=== PATIENT | female | born 1980 | race Caucasian/White ===

== ENCOUNTER 2016-06-26 22:17 | Emergency (ER) | payer OTHER ==
[2016-06-26 22:27] VITALS: BP 150/93
[2016-06-26] MEDS ORDERED: ALBUTEROL SULFATE 2.5 MG/3 ML NEBU. NEB ONE (23:15)
[2016-06-27] MEDS ORDERED: DEXAMETHASONE SOD PHOS 20 MG/5 ML VIAL. IM ONE (00:15)
[2016-06-27] MEDS ORDERED: PROAIR HFA8.5 GM INH (00:27)
[2016-06-27] MEDS ORDERED: PRED20TA PO (00:27)
--- NOTE | 2016-06-27 00:27 | PHYS DOC ---
Past Medical History Past Medical History: Depression, Other Additional Past Medical Histor: chronic back pain, chronic pain, H/A's, ezcema Past Surgical History: Cholecystectomy Smoking: Quit Greater Than 1 Year Alcohol Use: None Drug Use: None Adult General Chief Complaint Chief Complaint: PLEURISY HPI HPI Patient is a 35 year old female who presents with bilateral lateral rib pain starting tonight. She is a history of the same over the last 2 years. She states that the pain became worse tonight when she was cleaning her house. She reports shortness of breath and nonproductive cough as well. She denies fever, nasal congestion, or sore throat. The pain is worsened with deep breaths and movement of the arms and thorax. Her previous symptoms have been improved with an inhaler or with a breathing treatment. She does not currently have an inhaler at home. She denies any recent surgery, travel, immobilization, control use, or personal or family history of clotting disorders. She does not have a PCP. Review of Systems Review of Systems Constitutional: Denies fever or chills. [] Eyes: Denies change in visual acuity, redness, or eye pain. [] HENT: Denies ear pain, nasal congestion or sore throat. [] Respiratory: Reports nonproductive cough and shortness of breath. Cardiovascular: Denies palpitations or edema. Reports bilateral lateral rib pain. GI: Denies abdominal pain, nausea, vomiting, bloody stools or diarrhea. [] : Denies dysuria, hematuria or urinary frequency. [] Musculoskeletal: Denies back pain or joint pain. [] Integument: Denies rash or skin lesions. [] Neurologic: Denies headache, focal weakness or sensory changes. [] Endocrine: Denies polyuria or polydipsia. [] Psych: Denies anxiety or depression. [] All systems reviewed and negative unless otherwise stated in the HPI. Current Medications Current Medications Current Medications Medications (Trade) Dose Ordered Sig/Fabian Start Time Stop Time Status Last Admin Dose Admin Albuterol Sulfate (Ventolin Neb Soln) 2.5 mg 1X ONCE 06/26/16 23:15 06/26/16 23:16 DC 06/26/16 23:33 2.5 MG Dexamethasone Sodium Phosphate (Decadron) 10 mg 1X ONCE 06/27/16 00:15 06/27/16 00:16 DC 06/27/16 00:26 10 MG Allergies Allergies Allergies Coded Allergies Type Severity Reaction Last Updated Verified Penicillins Allergy Intermediate swells up, itches 03/19/14 Yes codeine Allergy Intermediate swells up & itches 03/19/14 Yes oxycodone Allergy Intermediate hives 03/19/14 Yes Physical Exam Physical Exam Constitutional: Well developed, well nourished, no acute distress, non-toxic appearance. [] HENT: Normocephalic, atraumatic, bilateral external ears normal, oropharynx moist, no oral exudates, nose normal. [] Eyes: PERRLA, EOMI, conjunctiva normal, no discharge. [] Neck: Normal range of motion, no tenderness, supple, no stridor. [] Cardiovascular: Heart rate regular rhythm, no murmur [] Lungs & Thorax: Bilateral breath sounds clear to auscultation without wheezes, rales, or rhonchi. There is significant tenderness of the lateral chest wall bilaterally without crepitus. No respiratory distress. Abdomen: Bowel sounds normal, soft, no tenderness, no masses, no pulsatile masses. [] Skin: Warm, dry, no erythema, no rash. [] Back: No tenderness, no CVA tenderness. [] Extremities: No tenderness, no cyanosis, no clubbing, ROM intact, no edema. [] Neurologic: Alert and oriented X 3, normal motor function, normal sensory function, no focal deficits noted. [] Psychologic: Affect normal, judgement normal, mood normal. [] Current Patient Data Vital Signs Vital Signs Date Time Temp Pulse Resp B/P Pulse Ox O2 Delivery O2 Flow Rate FiO2 06/26/16 23:34 99 Room Air 06/26/16 22:27 97.9 100 18 97.9 EKG EKG [] Radiology/Procedures Radiology/Procedures [] Course & Med Decision Making Course & Med Decision Making Pertinent Labs and Imaging studies reviewed. (See chart for details) The patient received a nebulizer treatment in the emergency department. She reported improvement in her shortness of breath with mild improvement in her pain. She is given IM Decadron to help with inflammation. She is discharged with prescription for albuterol inhaler and prednisone. Return precautions were discussed. She verbalizes understanding and agrees with plan. Dragon Disclaimer Dragon Disclaimer This electronic medical record was generated, in whole or in part, using a voice recognition dictation system. Departure Departure Impression: Primary Impression: Chest wall pain Disposition: 01 HOME, SELF-CARE Condition: IMPROVED Referrals: NO PCP (PCP) Patient Instructions: Chest Wall Pain, [id number] Additional Instructions: You were given an injection of steroids in the emergency department to decrease inflammation. Please use the prescribed inhaler as needed for cough or shortness of breath. Do not use more often than directed. Please follow up with a primary care provider if your symptoms continue. Return to the emergency department if you have any new or concerning symptoms. Scripts Prednisone 20 Mg [id number] Mg PO DAILY 5 Days Prov:JUANCHO ASTORGA 06/27/16 Albuterol Sulfate (Proair Hfa Inhaler)8.5 Gm [id number] Puff INH Q4HRS PRN SHORTNESS OF BREATH #1 INHALER Prov:JUANCHO ASTORGA 06/27/16 JUANCHO ASTORGA Jun 27, 2016 00:27
== END 2016-06-27 00:43 | disposition home or self-care (01) ==
LOC: ER 22:17
DX: R07.89 Other chest pain (principal); R06.02 Shortness of breath; R05 Cough; G89.29 Other chronic pain; F32.9 Major depressive disorder, single episode, unspecified; Z87.891 Personal history of nicotine dependence; Z88.0 Allergy status to penicillin; Z88.5 Allergy status to narcotic agent
CPT/HCPCS: 94250; 94640; 96372; 99283; J1100

== ENCOUNTER 2016-08-21 20:02 | Emergency (ER) | payer OTHER ==
[~2016-08-21] VITALS: Ht 165.1 cm; Wt 122.5 kg
[~2016-08-21 20:02] MED LIST: PRED20TA PO; PROAIR HFA8.5 GM INH
[2016-08-21 20:14] VITALS: BP 170/98
[2016-08-21] MEDS ORDERED: SULF1TAB24 PO (20:30)
[2016-08-21] MEDS ORDERED: DIPHTH,PERTUSS(ACELL),TET TOX 0.5 ML DISP.SYRIN. VAX IM ONE (20:30)
--- NOTE | 2016-08-21 20:33 | PHYS DOC ---
Past Medical History Past Medical History: Depression, Other Additional Past Medical Histor: chronic back pain, chronic pain, H/A's, ezcema Past Surgical History: Cholecystectomy Alcohol Use: None Drug Use: None Adult General Chief Complaint Chief Complaint: INSECT BITE [facility] HPI Patient is a 36 year old female presents to the emergency department with a insect bite to her left lower leg that developed yesterday. She states the areas been very irritated and itching. Patient denies any drainage or discharge coming from the site. She denies any numbness or tingling into the lower extremity. Patient states that she does feel different. She denies any nausea vomiting, fever chills. She does have an area to her left lower leg that appears to be a quarter size that is red with a scabbed over area. No drainage or discharge noted from the site. Review of Systems Review of Systems Constitutional: Denies fever or chills [] Eyes: Denies change in visual acuity, redness, or eye pain [] HENT: Denies nasal congestion or sore throat [] Respiratory: Denies cough or shortness of breath [] Cardiovascular: No additional information not addressed in HPI [] GI: Denies abdominal pain, nausea, vomiting, bloody stools or diarrhea [] : Denies dysuria or hematuria [] Musculoskeletal: Denies back pain or joint pain [] Integument: Denies rash or skin lesions. C/o sore to the left lower leg Neurologic: Denies headache, focal weakness or sensory changes [] Endocrine: Denies polyuria or polydipsia [] Allergies Allergies Allergies Coded Allergies Type Severity Reaction Last Updated Verified Penicillins Allergy Intermediate swells up, itches 03/19/14 Yes codeine Allergy Intermediate swells up & itches 03/19/14 Yes oxycodone Allergy Intermediate hives 03/19/14 Yes Physical Exam Physical Exam Constitutional: Well developed, well nourished, no acute distress, non-toxic appearance. []] Cardiovascular:Heart rate regular rhythm Skin: Warm, dry, no erythema, no rash. Patient with quarter size area to the left lower leg that is red with a scab noted over the site. No drainage or discharge noted from the site. Extremities: No tenderness, no cyanosis, no clubbing, ROM intact, no edema. [] Neurologic: Alert and oriented X 3, normal motor function, normal sensory function, no focal deficits noted. [] Psychologic: Affect normal, judgement normal, mood normal. [] Current Patient Data Vital Signs Vital Signs Date Time Temp Pulse Resp B/P (MAP) Pulse Ox O2 Delivery O2 Flow Rate FiO2 08/21/16 20:14 97.9 88 20 99 Room Air 97.9 EKG EKG [] Radiology/Procedures Radiology/Procedures [] Course & Med Decision Making Course & Med Decision Making Pertinent Labs and Imaging studies reviewed. (See chart for details) Patient was instructed to keep the area clean and dry. Clean the site with soap and water and apply antibiotic ointment to the area twice a day. She'll be placed on Bactrim 1 tablet twice a for the next 10 days. Signs and symptoms to return back to emergency department as been provided. Patient agrees with discharge instructions treatment regimens and recommendations. [] Dragon Disclaimer Dragon Disclaimer This electronic medical record was generated, in whole or in part, using a voice recognition dictation system. Departure Departure Impression: Primary Impression: Insect bite Disposition: HOME, SELF-CARE Condition: STABLE Referrals: NO PCP (PCP) Patient Instructions: Insect Bite, [id number] Additional Instructions: Activity a tolerated Medication as prescribed Keep the area clean and dry. Clean the site with soap and water twice a day and apply antibiotic ointment to site Followup with your primary care provider in 3-5 days Return to emergency department as needed for signs and symptoms that become worse. Scripts Sulfamethoxazole/Trimethoprim (BACTRIM DS TABLET) 1 Each Tablet 1 TAB PO BID, #20 TAB Prov: SIENNA ZULETA APRN 08/21/16 SIENNA ZULETA APRN Aug 21, 2016 20:33
== END 2016-08-21 20:40 | disposition home or self-care (01) ==
LOC: ER 20:02
DX: S80.862A Insect bite (nonvenomous), left lower leg, initial encounter (principal); F32.9 Major depressive disorder, single episode, unspecified; G89.29 Other chronic pain; Z88.0 Allergy status to penicillin; Z88.5 Allergy status to narcotic agent; W57.XXXA Bitten or stung by nonvenomous insect and other nonvenomous arthropods, initial encounter; Y93.89 Activity, other specified; Y92.89 Other specified places as the place of occurrence of the external cause; Y99.8 Other external cause status
CPT/HCPCS: 90471; 90715; 99283-25

== ENCOUNTER 2016-12-30 19:27 | Emergency (ER) | payer OTHER ==
[~2016-12-30] VITALS: Ht 167.6 cm; Wt 113.4 kg
[~2016-12-30 19:27] MED LIST changes: +SULF1TAB24 PO
[2016-12-30 19:32] VITALS: BP 138/76
--- NOTE | 2016-12-30 20:01 | PHYS DOC ---
Past Medical History Past Medical History: Depression, Hypertension, Other Additional Past Medical Histor: chronic back pain, chronic pain, H/A's, ezcema Past Surgical History: Cholecystectomy Alcohol Use: None Drug Use: None Adult General Chief Complaint Chief Complaint: SORE THROAT HPI HPI Patient is a 36 year old female presents the ED complaining of sore throat 3 days. Pain with swallowing. Sick contacts with similar symptoms. Associated symptoms include productive cough, subjective fever, 2 episodes of vomiting, and headache. Denies chest pain, shortness of breath, dizziness, weakness, abdominal pain, difficulty swallowing, or tongue swelling. Review of Systems Review of Systems Constitutional: Complains of subjective fever. Denies chills. [] Eyes: Denies change in visual acuity, redness, or eye pain [] HENT: Denies nasal congestion. Complains of sore throat. [] Respiratory: Complains of cough. Denies shortness of breath [] Cardiovascular: No additional information not addressed in HPI [] GI: Complains of vomiting. Denies abdominal pain, bloody stools or diarrhea [] : Denies dysuria or hematuria [] Musculoskeletal: Denies back pain or joint pain [] Integument: Denies rash or skin lesions [] Neurologic: Denies headache, focal weakness or sensory changes [] Endocrine: Denies polyuria or polydipsia [] Allergies Allergies Allergies Coded Allergies Type Severity Reaction Last Updated Verified Penicillins Allergy Intermediate swells up, itches 03/19/14 Yes codeine Allergy Intermediate swells up & itches 03/19/14 Yes oxycodone Allergy Intermediate hives 03/19/14 Yes Physical Exam Physical Exam Constitutional: Well developed, well nourished, no acute distress, non-toxic appearance. [] HENT: Normocephalic, atraumatic, bilateral external ears normal, MILD PHARYNGEAL ERYTHEMA. oropharynx moist, nose normal. [] Eyes: PERRLA, EOMI, conjunctiva normal, no discharge. [] Neck: Normal range of motion, no tenderness, supple, no stridor. [] Cardiovascular:Heart rate regular rhythm, no murmur [] Lungs & Thorax: Bilateral breath sounds clear to auscultation [] Abdomen: Bowel sounds normal, soft, no tenderness, no masses, no pulsatile masses. [] Skin: Warm, dry, no erythema, no rash. [] Back: No tenderness, no CVA tenderness. [] Extremities: No tenderness, no cyanosis, no clubbing, ROM intact, no edema. [] Neurologic: Alert and oriented X 3, normal motor function, normal sensory function, no focal deficits noted. [] Psychologic: Affect normal, judgement normal, mood normal. [] Current Patient Data Vital Signs Vital Signs Date Time Temp Pulse Resp B/P (MAP) Pulse Ox O2 Delivery O2 Flow Rate FiO2 12/30/16 19:32 97.9 99 20 99 Room Air 97.9 Lab Values Laboratory Tests Test 12/30/16 20:30 POC Urine HCG, Qualitative Hcg negative (Negative) EKG EKG [] Radiology/Procedures Radiology/Procedures PROCEDURE: CHEST PA & LATERAL EXAM: CHEST 2 VIEWS History: Cough, fever, congestion COMPARISON: None available. TECHNIQUE: PA and lateral chest radiographs FINDINGS: The cardiomediastinal silhouette is within normal limits. The lungs are clear bilaterally. The costophrenic sulci are clear and well demarcated bilaterally. IMPRESSION: No radiographic evidence of an acute cardiopulmonary abnormality.[] Course & Med Decision Making Course & Med Decision Making Pertinent Labs and Imaging studies reviewed. (See chart for details) []Discussed labs and imaging with patient. Patient's pain improved. Vital stable , no acute distress. Tolerating PO. States she is feeling much better. Discussed follow-up with patient this week. Discussed reasons to return to the ED. Patient understands and agrees with plan. Dragon Disclaimer Dragon Disclaimer This electronic medical record was generated, in whole or in part, using a voice recognition dictation system. Departure Departure Impression: Primary Impression: Acute bronchitis Additional Impression: Sore throat Disposition: HOME, SELF-CARE Condition: STABLE Referrals: NO PCP (PCP) TELLY PACKER MD Patient Instructions: Acute Bronchitis, Viral and Bacterial Pharyngitis Scripts Azithromycin (AZITHROMYCIN TABLET) 250 Mg Tablet 1 PKG PO UD, #6 TAB Prov: DRAKE COLUNGA 12/30/16 Prednisone (PREDNISONE) 20 Mg Tablet 2 TAB PO DAILY, #10 TAB Prov: DRAKE COLUNGA 12/30/16 Problem Qualifiers DRAKE COLUNGA Dec 30, 2016 20:01
[2016-12-30] MEDS ORDERED: PRED20TA PO (21:10)
[2016-12-30] MEDS ORDERED: AZIT250T6 PO (21:10)
--- NOTE | 2016-12-31 08:54 | RAD ---
EXAM: CHEST 2 VIEWS History: Cough, fever, congestion COMPARISON: None available. TECHNIQUE: PA and lateral chest radiographs FINDINGS: The cardiomediastinal silhouette is within normal limits. The lungs are clear bilaterally. The costophrenic sulci are clear and well demarcated bilaterally. IMPRESSION: No radiographic evidence of an acute cardiopulmonary abnormality.
== END 2016-12-30 21:13 | disposition home or self-care (01) ==
LOC: ER 19:27
DX: J02.9 Acute pharyngitis, unspecified (principal); J20.9 Acute bronchitis, unspecified; F32.9 Major depressive disorder, single episode, unspecified; I10 Essential (primary) hypertension; G89.29 Other chronic pain; Z88.0 Allergy status to penicillin; Z88.5 Allergy status to narcotic agent
CPT/HCPCS: 71020; 81025; 99284-25

== ENCOUNTER 2017-12-21 18:50 | Emergency (ER) | payer OTHER ==
[~2017-12-21] VITALS: Ht 154.9 cm; Wt 122.5 kg
[~2017-12-21 18:50] MED LIST changes: +AZIT250T6 PO; +CEFP200T PO; +FLUC100T PO; +LINE600T PO; +TRAM50TA PO
[2017-12-21 19:28] VITALS: BP 165/94
[2017-12-21] MEDS ORDERED: DEXAMETHASONE SOD PHOS 20 MG/5 ML VIAL. PO ONE (20:00)
[2017-12-21] MEDS ORDERED: ALBUTEROL SULFATE 2.5 MG/3 ML NEBU. NEB ONE (20:00)
[2017-12-21] MEDS ORDERED: BENZ100C PO (20:53)
[2017-12-21] MEDS ORDERED: PRED50TA PO (20:53)
--- NOTE | 2017-12-21 20:53 | PHYS DOC ---
Past Medical History Past Medical History: Anxiety, Depression, Hypertension, Other Additional Past Medical Histor: chronic back pain, chronic pain, H/A's, ezcema Past Surgical History: Cholecystectomy Alcohol Use: None Drug Use: None Adult General Chief Complaint Chief Complaint: Congestion HPI HPI Patient is a 37 year old female who presents to the ER with complaints of a dry cough for the last 2 weeks. She also reports having chest tightness, and nasal congestion for the last 3 days. Patient states she has been smoking due to lots of stress in her life. She denies any fever, nausea, vomiting, diarrhea , or sore throat. She reports a history of high blood pressure, anxiety, depression, chronic back pain, headaches, and eczema. Review of Systems Review of Systems Constitutional: Denies fever or chills [] Eyes: Denies change in visual acuity, redness, or eye pain [] HENT: Denies sore throat; reports nasal congestion [] Respiratory: Reports dry cough for the last 2 weeks with increased chest tightness for the last 3 days, and shortness of breath, she states that hurts in her chest cough Cardiovascular: No additional information not addressed in HPI [] GI: Denies abdominal pain, nausea, vomiting, or diarrhea [] Integument: Denies rash or skin lesions [] Neurologic: Denies headache, focal weakness or sensory changes [] All other systems were reviewed and found to be within normal limits, except as documented in this note. Current Medications Current Medications Current Medications Medications (Trade) Dose Ordered Sig/Fabian Start Time Stop Time Status Last Admin Dose Admin Albuterol Sulfate (Ventolin Neb Soln) 2.5 mg 1X ONCE 12/21/17 20:00 12/21/17 20:03 DC 12/21/17 20:19 2.5 MG Dexamethasone Sodium Phosphate (Decadron) 10 mg 1X ONCE 12/21/17 20:00 12/21/17 20:03 DC 12/21/17 20:15 10 MG Allergies Allergies Allergies Coded Allergies Type Severity Reaction Last Updated Verified Penicillins Allergy Intermediate swells up, itches 01/05/17 Yes codeine Allergy Intermediate swells up & itches 03/19/14 Yes oxycodone Allergy Intermediate hives 03/19/14 Yes Physical Exam Physical Exam Constitutional: Well developed, well nourished, no acute distress, non-toxic appearance, obese, odor of tobacco smoke. [] HENT: Normocephalic, atraumatic, bilateral external ears normal, oropharynx moist, no oral exudates, nose normal. [] Eyes: PERRLA, conjunctiva normal, no discharge. [] Neck: Normal range of motion, no tenderness, supple, no stridor. [] Cardiovascular:Heart rate regular rhythm, no murmur [] Lungs & Thorax: Bilateral breath sounds clear to auscultation, chest tenderness to palpation [] Skin: Warm, dry, no erythema, no rash. [] Extremities: No cyanosis, no clubbing, ROM intact, no edema. [] Neurologic: Alert and oriented X 3, normal motor function, normal sensory function, no focal deficits noted. [] Psychologic: Affect normal, judgement normal, mood normal. [] Current Patient Data Vital Signs Vital Signs Date Time Temp Pulse Resp B/P (MAP) Pulse Ox O2 Delivery O2 Flow Rate FiO2 12/21/17 20:17 95 Room Air 12/21/17 19:28 98.2 81 20 165/94 (117) 98.2 Lab Values Laboratory Tests Test 12/21/17 20:07 POC Urine HCG, Qualitative Hcg negative (Negative) EKG EKG [] Radiology/Procedures Radiology/Procedures Chest x-ray negative for any acute changes read by Dr. Cerda[] Course & Med Decision Making Course & Med Decision Making Pertinent Labs and Imaging studies reviewed. (See chart for details) dx: acute bronchitis, chest wall pain Pt was given one albuterol tx and 10 mg of decadron in the ER, lungs remain clear, no reduction in cough Rx for tessalon perrles and prednisone written. Pt encouraged to stop smoking, increase clear fluids, and avoid airway irritants. Follow up with PCP this week about your high blood pressure, return to ER if symptoms worsen. Patient verbalized an understanding of home care, medications, follow-up, and return to ED instructions and was in agreement with the plan of care. [] Dragon Disclaimer Dragon Disclaimer This electronic medical record was generated, in whole or in part, using a voice recognition dictation system. Departure Departure Impression: Primary Impression: Chest wall pain Additional Impression: Acute bronchitis Disposition: HOME, SELF-CARE Condition: STABLE Referrals: NO PCP (PCP) Patient Instructions: Acute Bronchitis, [id number], Chest Wall Pain, Easy-to- Read Additional Instructions: Fill prescription(s) and use as directed. Cool mist humidifier in room at bedtime. Tylenol or ibuprofen prn pain/fever. Increase clear fluids. Stop smoking and Avoid triggers such as smoke, fragrance, dust, and pollen. Follow- up with your primary care doctor this week about your high blood pressure and for reevaluation. Return to the emergency room if her symptoms worsen. Scripts Prednisone (PREDNISONE) 50 Mg Tablet 1 TAB PO DAILY, #5 TAB start this medication on 12/22/17 Prov: SUSSY LEON BRANCH CREDIT COUNSELOR 12/21/17 Benzonatate (TESSALON PERLE) 100 Mg Capsule 1 CAP PO TID, #21 CAP Prov: SUSSY LEON BRANCH CREDIT COUNSELOR 12/21/17 Problem Qualifiers Additional Impression: Acute bronchitis Bronchitis organism: unspecified organism Qualified Codes: J20.9 - Acute bronchitis, unspecified SUSSY LEON BRANCH CREDIT COUNSELOR Dec 21, 2017 20:53
--- NOTE | 2017-12-22 07:51 | RAD ---
CHEST PA LATERAL Clinical indications: ER PATIENT. PRODUCTIVE COUGH X2 WEEKS. WHITE SPUTUM. Hx HTN. COMPARISON: December 30, 2016. Findings: No acute lung infiltrate or pleural effusion or pulmonary edema or lung mass or pneumothorax is seen. The heart size, pulmonary vasculature, mediastinum and both migdalia are unremarkable. The osseous structures appear intact. Impression: No acute radiographic abnormality is seen. Electronically signed by: Juan Ramon Block MD (12/22/2017 7:48 AM) [facility]
== END 2017-12-21 20:58 | disposition home or self-care (01) ==
LOC: ER 18:50
DX: R07.89 Other chest pain (principal); J20.9 Acute bronchitis, unspecified; I10 Essential (primary) hypertension; G89.29 Other chronic pain; M54.9 Dorsalgia, unspecified; Z90.49 Acquired absence of other specified parts of digestive tract; Z88.0 Allergy status to penicillin; Z88.5 Allergy status to narcotic agent
CPT/HCPCS: 71046; 81025; 94640; 99284; J1100; J7613